=== PATIENT | female | born 1990 | race Caucasian/White ===

== ENCOUNTER 2016-05-20 14:44 | Outpatient (CLI) | payer OTHER ==
[~2016-05-20] VITALS: Ht 170.2 cm; Wt 190.0 kg
[2016-05-20 15:07] VITALS: Ht 170.2 cm; Wt 190.0 kg
[2016-05-20 15:08] VITALS: BP 174/83; PULSE 110; RESP 20
== END 2016-05-20 17:00 | disposition home or self-care (01) ==
LOC: EDSEX 14:44 → DCC 14:44
PROVIDERS: ATTEND Internal Medicine
DX: L03.116 Cellulitis of left lower limb (principal); I89.0 Lymphedema, not elsewhere classified; K74.60 Unspecified cirrhosis of liver; E66.9 Obesity, unspecified; Z68.44 Body mass index [BMI] 60.0-69.9, adult

== ENCOUNTER 2016-05-30 11:03 | Outpatient (CLI) | payer OTHER ==
[~2016-05-30] VITALS: Ht 170.2 cm; Wt 190.0 kg
[2016-05-30 11:14] VITALS: BP 132/57; PULSE 105; RESP 18; Ht 170.2 cm; Wt 190.0 kg
--- NOTE | 2016-05-30 11:27 | PN ---
Date/Time of Note Date/Time of Note DATE: 05/30/16 TIME: 11:26 Outpatient Progress Note Chief Complaint Cellulitis/lymphedema/cirrhosis HPI Cellulitis/patient had cellulitis and a small ulcer on the left leg, almost completely healed, no fever or chill, no bleeding or discharge, no redness, Lymphedema/patient has lymphedema both legs, no pain, no redness, Cirrhosis/no nausea or vomiting, no pruritus, to be followed with the inventory analyst, Review of Systems Const: [No Fever, no chills, no Wt. loss, no Fatigue, normal appetite, no diaphoresis.] Eyes: [No pain, no discharge, no redness, no visual change, no foreign body.] ENT: [No pain, no bleeding, no congestion, no sore throat, no dysphagia, no discharge or rhinitis.] Lymph: [No adenopathy, no tender nodes, no lymphedema.] Resp: [No SOB, no cough, no sputum, no wheezing, no chest pain.] CV: [No chest pain, no palpitaions, no HANKINS, no PND, no edema.] GI: [Normal appetite, no pain, no nausea, no vomiting, no diarrhea, no blood, no constipation.] : [No frequency, no urgency, no dysuria, no hematuria, no flank pain, no discharge, no bleeding.] Musc: [No bone/joint pain, no back pain, no neck pain, no knee pain, no restricted ROM.] Skin: [No rash, no skin lesions, no erythema, no laceration, no bruising, no pruritus.] Neuro: [No MATOS, no dizziness, no syncope, no seizure, no focal-weakness.] Endo: [No polyuria, no polydypsia, no dry-skin, no temp-intolerance.] Psych: [No hallucinations, no depression, no anxiety, no suicidal ideation.] Ext: [Bilateral leg lymph edema, left leg small ulcer healed, no pain,, no weakness.] Physical Exam Vital Signs Date Time Temp Pulse Resp B/P Pulse Ox O2 Delivery O2 Flow Rate FiO2 05/30/16 11:14 98.1 105 18 132/57 97 Room Air General Appearance: A [26] year-old [female [who appears well-developed, well- nourished, in no acute distress.] HEENT: [Head normocephalic, atraumatic. Pupils equal, round, reactive to light and accommodate. Sclerae are no jaundice. Nasal turbinates pink without erythema or nasal discharge. Mucous membranes pink and moist without lesions. Oropharynx clear without any exudate or discharge.] NECK: [Supple. Trachea midline, No thyromegaly, No cervical lymphadenopathy, No mass, No carotid bruits, No JVD, Carotid pulses 2+ bilaterally.] PULMONARY: [Clear to auscultaion bilaterally, No retractions, Chest expansion symmetric bilaterally, no rales, no ronchi, no dulness on percussion.] CARDIAC: [Normal SI and S2, Regular rate and rythm, no murmur, gallop, or rub.] GASTROINTESTINAL: [Abdomen is soft, non-tender, Non Rigid, No distention, Positive bowel sounds x4 quadrants, Liver normal.] SKIN: [Warm, dry, no rash, no bruise, no echmosis. Ulcer on the left leg almost healed, no redness, no ulcer or bleeding or discharge,] EXTREMITIES: [Bilateral lower extremities bilateral lymphedema, no phlabitus, pulse palpable, no contracture.] MUSCULOSKELETAL: [Spine Normal, Non-tender, Normal range of motion, No swelling , no deformity, no clubbing, or cyanosis, the patient has no edema to bilateral lower extremities, dorsalis pedis pulses palpable bilaterally.] NEUROLOGIC: [The patient is awake, alert, oriented, responding to yes/no questions appropriately, moving all extremities, cranial nerve intact, normal strenght, normal power, normal coordination, normal gait.] Allergies Coded Allergies: vancomycin (Verified Allergy, Unknown, 05/20/16) H Cellulitis/ulcer left leg/lymphedema/cirrhosis Social Hx No change Family Hx No change Assessment/Plan Impression Cellulitis improved/lymphedema/cirrhosis/ulcer almost healed Plan Patient has almost complete healing of the ulcer on the left leg, patient still has bilateral lymphedema, patient advised to use Kwabena bandage on the both legs, and try to keep the legs elevated, Patient need to follow with the inventory analyst, Patient to follow with the primary care physician, ALEXUS HUTCHINSON MD May 30, 2016 11:27
== END 2016-05-30 16:43 | disposition home or self-care (01) ==
LOC: DCC 11:03
PROVIDERS: ATTEND Internal Medicine
DX: L03.116 Cellulitis of left lower limb (principal); I89.0 Lymphedema, not elsewhere classified; K74.60 Unspecified cirrhosis of liver

== ENCOUNTER → 2016-11-21 | Outpatient (CLI) | payer OTHER ==
[~2016-11-21] VITALS: Ht 170.2 cm; Wt 175.0 kg
[~2016-11-21] MED LIST: CALC667C PO; DOCU-159 PO; ERGO500037 PO; HYDR5TAB2 PO; MIDO10TA PO; PANT40TA4 PO; SENN-53 PO
[2016-11-21 11:40] VITALS: BP 127/58; PULSE 92; Ht 170.2 cm; Wt 175.0 kg
--- NOTE | 2016-11-21 12:45 | PN ---
Date/Time of Note Date/Time of Note DATE: 11/21/16 TIME: 12:37 Outpatient Progress Note Chief Complaint Venous stasis/cirrhosis/chronic renal failure/anemia/PUD/coagulopathy/morbid obesity HPI Venous stasis/patient is venous stasis, especially bilateral lower extremity left side worse than right side, patient has small ulcer, which is constantly losing serous discharge going to colostomy bag, Cirrhosis/patient has fatty liver and has cirrhosis, no nausea vomiting, no hematemesis or melena, Chronic renal failure/patient has chronic renal failure, patient on hemodialysis , no pruritus, Anemia/patient has weakness and tiredness, anemia aggravated by chronic renal failure, PUD/patient has no heartburn, patient had gastritis, improving, Coagulopathy/patient has coagulopathy, no active bleeding at present, Morbid obesity/patient has morbid obesity, no history of any hypothyroidism, Review of Systems Const: No Fever, no chills, no Wt. loss, no Fatigue, normal appetite, no diaphoresis., Patient morbidly obese, Eyes: No pain, no discharge, no redness, no visual change, no foreign body. ENT: No pain, no bleeding, no congestion, no sore throat, no dysphagia, no discharge or rhinitis. Lymph: No adenopathy, no tender nodes, no lymphedema. Resp: No SOB, no cough, no sputum, no wheezing, no chest pain. CV: No chest pain, no palpitaions, no HANKINS, no PND, no edema. GI: Normal appetite, no pain, no nausea, no vomiting, no diarrhea, no blood, no constipation. : No frequency, no urgency, no dysuria, no hematuria, no flank pain, no discharge, no bleeding. Musc: No back pain, no neck pain, no knee pain, no restricted ROM. Skin: No rash, no skin lesions, no erythema, no laceration, no bruising, no pruritus. Neuro: No MATOS, no dizziness, no syncope, no seizure, no focal-weakness. Endo: No polyuria, no polydypsia, no dry-skin, no temp-intolerance. Psych: No hallucinations, no depression, no anxiety, no suicidal ideation. Ext: Bilateral lower extremity lymph edema, no pain, patient has a left leg ulcer, and has a colostomy bag, which is draining serous fluid, generalized weakness. Physical Exam Vital Signs Date Time Temp Pulse Resp B/P Pulse Ox O2 Delivery O2 Flow Rate FiO2 11/21/16 11:40 98.2 92 127/58 98 Room Air General Appearance: A 26 year-old female who appears well-developed, well- nourished, in no acute distress patient morbidly obese,. HEENT: Head normocephalic, atraumatic. Pupils equal, round, reactive to light and accommodate. Sclerae are no jaundice. Nasal turbinates pink without erythema or nasal discharge. Mucous membranes pink and moist without lesions. Oropharynx clear without any exudate or discharge. NECK: Supple. Trachea midline, No thyromegaly, No cervical lymphadenopathy, No mass, No carotid bruits, No JVD, Carotid pulses 2+ bilaterally. PULMONARY: Clear to auscultaion bilaterally, No retractions, Chest expansion symmetric bilaterally, no rales, no ronchi, no dulness on percussion. CARDIAC: Normal SI and S2, Regular rate and rythm, no murmur, gallop, or rub. GASTROINTESTINAL: Abdomen is soft, non-tender, Non Rigid, No distention, Positive bowel sounds x4 quadrants, Liver normal. SKIN: Warm, dry, no rash, no bruise, no echmosis. Patient has left leg ulcer, EXTREMITIES: Bilateral lower extremities lymph edema, patient also has ulcer, with a serous discharge, which is going into the colostomy back, no phlabitus, pulse palpable, no contracture. MUSCULOSKELETAL: Spine Normal, Non-tender, Normal range of motion, No swelling, no deformity, no clubbing, or cyanosis, the patient has lymphedema, to bilateral lower extremities, dorsalis pedis pulses palpable bilaterally. NEUROLOGIC: The patient is awake, alert, oriented, responding to yes/no questions appropriately, moving all extremities, cranial nerve intact, normal strenght, normal power, normal coordination, normal gait. Allergies Coded Allergies: vancomycin (Verified Allergy, Unknown, 05/20/16) PMH Stasis ulcer/stasis dermatitis/history of cellulitis/venous stasis/cirrhosis/ chronic renal failure/anemia/PUD/coagulopathy/morbid obesity/disorder of kidney and ureter/alcohol abuse/cellulitis improved AV fistula insertion/bone biopsy/debridement/liver biopsy/endoscopy/vascular surgery placement of PICC line Social Hx No smoking no drinking at present, Family Hx Noncontributory Assessment/Plan Impression Venous stasis/cirrhosis/chronic renal failure/anemia/PUD/coagulopathy/morbid obesity Plan Patient education done about her medical condition, explained the sickness she is going through, patient encouraged to lose weight, control the blood pressure , take the medication regular basis, and be compliant, Risk of not following through explained to the patient, Patient also encouraged with the follow-up with the primary care physician, Patient has left leg ulcer, which is oozing serous discharge, patient has a colostomy back, which may not last longer, patient high risk for repeated admission, Patient will need another colostomy bag, will discuss with insurance company, meanwhile continue all medication, patient does not need at present any medication, Medications Home Meds Reported Medications Pantoprazole* (Pantoprazole*) 40 Mg Tablet.dr, 40 MG PO AC BREAKFAST, TAB 11/21/16 Midodrine* (Midodrine*) 10 Mg Tablet, 10 MG PO TID, TAB 11/21/16 Hydrocortisone (Hydrocortisone) 5 Mg Tablet, 5 MG PO QPM, TAB 11/21/16 Hydrocortisone (Hydrocortisone) 5 Mg Tablet, 15 MG PO QAM, TAB 11/21/16 Ergocalciferol (Vitamin D2) (VITAMIN D2) 50,000 Unit Capsule, 99889 UNIT PO weekly, CAP 11/21/16 Calcium Acetate* (Calcium Acetate*) 667 Mg Capsule, 1334 MG PO WITH MEALS, #60 CAP 11/21/16 Sennosides* (Senna Lax*) 8.6 Mg Tablet, 1 TAB PO BID for CONSTIPATION, TAB 11/21/16 Docusate Sodium* (Docusate Sodium*) 100 Mg Capsule, 100 MG PO BID for CONSTIPATION, #60 CAP 11/21/16 ALEXUS HUTCHINSON MD Nov 21, 2016 12:45
== END | disposition home or self-care (01) ==
LOC: DCC 11:33
PROVIDERS: ATTEND Internal Medicine
DX: I87.8 Other specified disorders of veins (principal); K74.60 Unspecified cirrhosis of liver; N18.6 End stage renal disease; Z99.2 Dependence on renal dialysis; D64.9 Anemia, unspecified; K27.9 Peptic ulcer, site unspecified, unspecified as acute or chronic, without hemorrhage or perforation; D68.9 Coagulation defect, unspecified; E66.01 Morbid (severe) obesity due to excess calories; Z93.3 Colostomy status; Z88.1 Allergy status to other antibiotic agents